=== PATIENT | female | born 1955 | race Caucasian/White ===

== ENCOUNTER 2024-03-11 09:59 | Emergency (ER) | payer BC, SELFPAY ==
[2024-03-11 10:15] VITALS: BP 168/98
--- NOTE | 2024-03-11 11:34 | ED.GENMED ---
History of Present Illness
General
Chief Complaint: Musculo-Skeletal Complaint
Source: patient
Exam Limitations: none
Time Seen by Provider: 03/11/24 11:14
Nursing documentation reviewed up to this point in time: agreed with
History of Present Illness
History of Present Illness:
The patient is a pleasant 68-year-old female who reports that about 48 hours ago, she fell into the edge of a dresser. Patient denies any dizziness or passing out. She did not hit her head. Patient complains of ongoing right lower rib cage pain.
Patient takes aspirin and Plavix but denies being on any stronger blood thinners. She denies abdominal pain, nausea, vomiting and lightheadedness. Patient reports that the pain is improved with ibuprofen but this morning when she woke up, the pain
was pretty severe with sneezing and she grew concerned. Patient denies difficulty breathing and increased cough
Past History
Past History
ED Past Medical History: Other
ED Past Surgical History: Other (Lobectomy)
Social History
Tobacco: Other
Alcohol: Other
Drug: None
Personal: Other
Living: other
Employment: Other
Family History
Family History: Other
Review of Systems
Review of Systems
Allergies reviewed?: Yes
All Other Systems: ROS reviewed and negative except as documented in HPI and ROS
Constitutional: Reports no symptoms
EENT: Reports no symptoms
Respiratory: Reports no symptoms
Cardiac: Reports other (Right-sided chest wall pain)
ABD/GI: Reports no symptoms
: Reports no symptoms
Musculoskeletal: Reports no symptoms
Skin: Reports no symptoms
Neurological: Reports no symptoms
Endocrine: Reports no symptoms
Hematologic/Lymphatic: Reports no symptoms
Psychiatric: Reports no symptoms
Phy Exam
Physical Exam
Physical Exam:
Physical Exam
General: no apparent distress, not acutely ill. Patient appears well, walking around the room and conversational. Atraumatic appearing face and head
Neck: supple.
Heart: s1/s2 regular rate and rhythm, soft tissue tenderness of right lateral rib cage area without any signs of ecchymoses, abrasion or deformity
Lungs: no acute respiratory distress. clear bilaterally
Abdomen: Soft throughout, no right upper quadrant tenderness, nontender throughout
Neuro: alert and oriented. no focal neurological deficits
Skin: no rash
Psychiatric: well kept. interactive and cooperative
Extremities: no edema. no calf tenderness. negative homans. good distal pulses,. Nontender upper and lower extremities
Course
Orders/Labs/Results
Orders:
Orders
03/11/24 10:19
Ribs, Right 3 View W/PA Chest [CR Ribs-right 3 Vw W/pa Chest*] Urgent
Comment:
Reason For Exam: injury
03/11/24 11:49
Acetaminophen [Tylenol] 1,000 mg PO NOW STA
03/11/24 11:50
Ibuprofen [Motrin] 400 mg PO NOW STA
Vital Signs
Initial and Last Documented VS:
Initial Vital Signs
Temp Pulse Resp BP Pulse Ox
98.8 F 105 18 168/98 96
03/11/24 10:15 03/11/24 10:15 03/11/24 10:15 03/11/24 10:15 03/11/24 10:15
Last Documented Vital Signs
Temp Pulse Resp BP Pulse Ox
98.8 F 105 18 168/98 96
03/11/24 10:15 03/11/24 10:15 03/11/24 10:15 03/11/24 10:15 03/11/24 10:15
MDM/Problems Addressed
Differential Diagnosis Includes:
Right-sided rib fracture, right rib contusion, chest wall contusion
MDM/Problems Addressed:
Patient presents with right-sided chest wall pain after falling into a dresser
Chronic conditions affecting care:
History of lobectomy which could increase risk of shortness of breath and pulmonary infection
Acute Exacerbation and/or Progression of Chronic Illness:
Patient is acutely hypertensive, likely due to being in the ED anxiety.
Acute Exacerbation and/or Progression of Chronic Illness: HTN
*Radiology
Radiology exam reviewed: preliminary read by ED provider (Chest x-ray read by me. No acute fracture seen) and radiology read reviewed
*Pulse Oximetry
Patient hypoxic: no
*EKG
Interpreted by ED Provider?: NA
*Reproductive Surgeon Interpretation
Rate: Reproductive Surgeon- N/A
*Critical Care Note
Total Time (30-74mins, 75-104mins- exclusive of procedures): Not Applicable
Data Reviewed
Source: patient
Patient Management
Social determinants of health affecting care: Living situation and Strong social support
Escalation/DeEscalation of care consider admission/obs:
Patient breathing and walk around comfortably without any signs of respiratory distress or tachypnea. Patient told to return with any increased work of breathing, cough or fever
ED Attending Note
-
Portions of this chart may have been created with voice recognition software.� Occasional wrong word or��sound alike� substitutions may have occurred due to the inherent limitations of voice recognition software.
Discharge Plan
Departure
Patient Disposition: Home (Routine Discharge)
Date of Disposition: 03/11/24
Time of Disposition: 11:50
Patient with high blood pressure during this ER visit?: Yes
Condition: Good
Covid-19: Not Applicable
Discharge Problem:
Contusion of rib on right side
Instructions: Blunt Chest Trauma ED
Prescriptions:
No Action
losartan [Cozaar] 100 mg tablet
100 mg PO DAILY Qty: 30 0RF
atorvastatin 40 mg Tablet
40 mg PO QPM 30 Days Qty: 30 0RF
clopidogrel 75 mg Tablet
75 mg PO DAILY 20 Days Qty: 20 0RF
nicotine 21 mg/24 hr Patch 24 Hour
21 mg transdermal DAILY 30 Days Qty: 30 0RF
aspirin 81 mg capsule
81 mg PO DAILY Qty: 30 0RF
Referrals:
Crystal Romero CRNP [Family Provider] -
Activity Restrictions/Additional Instructions:
Take 1000 mg of Tylenol every 4-6 hours for pain. In addition to this, you should also take 400 mg of ibuprofen every 6-8 hours
Interventions
Interventions:
*Risk Screen - Suicide Last Done: 03/11/24 10:15
*General Assessment Last Done: 03/11/24 10:15
*Neglect/Abuse Screening Last Done: 03/11/24 10:15
*Nursing Disposition Last Done: 03/11/24 12:44
ED-Musculoskeletal Assessment Last Done: 03/11/24 11:57
Discharge Date and Time
Discharge Date/Time: 03/11/24 12:46
Print Language: DANISH
[2024-03-11] MEDS: TYLENOL 1000 MG PO (11:54)
[2024-03-11] MEDS: MOTRIN 400 MG PO (11:55)
== END 2024-03-11 12:46 | disposition home or self-care (01) ==
LOC: EMR 09:59
PROVIDERS: EMERGENCY PHYSICIAN Emergency Medicine; FAMILY PHYSICIAN Nurse Practitioner Family
DX: S20.211A Contusion of right front wall of thorax, initial encounter (principal); W22.03XA Walked into furniture, initial encounter; I10 Essential (primary) hypertension
CPT/HCPCS: 99283; 71101